=== PATIENT | male | born 1985 | race Caucasian/White ===

== ENCOUNTER 2018-07-18 18:04 | Emergency (ER) | payer BC, SELFPAY ==
--- NOTE | 2018-07-18 18:12 | DI.RAD.S_ITS ---
PROCEDURE: XR FOREARM RT 2V INDICATIONS: Foreign swelling and pain. TECHNIQUE: 2 views of the forearm were acquired. COMPARISON: None. FINDINGS: Bones: No fractures or dislocations. No bony erosions or periosteal reaction. No suspicious bony lesions. Soft tissues: There is soft tissue swelling within the mid forearm. No soft tissue calcifications. IMPRESSION: 1. No fractures or bony erosions. 2. No suspicious soft tissue calcifications. Dictated by: Jordy Carmen M.D. on 07/18/2018 at 18:57 Approved by: Jordy Carmen M.D. on 07/18/2018 at 18:58
[2018-07-18 18:13] VITALS: BP 143/93; PULSE 87; RESP 16; TEMP 37; O2SAT 98; BMI 27.1
--- NOTE | 2018-07-18 18:14 | ED.UPPEXIN ---
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 He developed left forearm pain yesterday while work. He now has difficulty with key account representative and movement in hand wrist. The pain is in his left distal forearm, radial side. He has no numbness or weaknesses hand. He has no pain in the wrist itself. He can recall no injury. He is right-hand dominant. Related Data Allergies Allergy/AdvReac Type Severity Reaction Status Date / Time No Known Drug Allergies Allergy Verified 07/18/18 18:13 Review of Systems Review of Systems ROS Unobtainable: All systems reviewed & are unremarkable except as noted in HPI and below Constitutional Reports weakness Musculoskeletal Reports as per HPI, Denies deformity, Reports muscle weakness, Denies stiffness and Denies tingling Integumentary/Breasts Denies pruritus, Denies erythema, Denies rash and Denies wounds Neurologic Reports as per HPI, Denies tingling and Reports weakness [facility] Medical History No active medical problems (Acute) Surgical History No pertinent past surgical history (Acute) Social History (Updated 07/18/18 @ 18:26 by Kumar Churchill MD) Smoking Status: Never smoker Exam Initial Vital Signs Initial Vital Signs: Vital Signs Temperature 98.6 F 07/18/18 18:13 Pulse Rate 87 07/18/18 18:13 Respiratory Rate 16 07/18/18 18:13 Blood Pressure 143/93 H 07/18/18 18:13 Pulse Oximetry 98 07/18/18 18:13 Const General: cooperative and well developed Nutritional Appearance: well nourished Orientation: alert, awake and oriented x3 Skin General: no rashes or lesions noted Neuro General: alert, oriented x3 and no focal motor deficits Extrem Other: Muscle tenderness palpable in the left dorsal, radial wrist. Pain increased with key account representative, or wrist motion. No palpable tenderness within the wrist joint itself. Normal flexion extension of all fingers on the left hand. The radial pulse is intact. Left hand is neurovascularly intact. Procedures Orthopedic Splinting/Casting Injury #1: Side: left Upper Extremity Injury Location: wrist Upper Extremity Immobilizer: wrist splint Post splinting neuro exam: intact Post splinting vascular exam: intact Placed by: Nursing Course Orders Ordered: ED Orders 07/18/18 18:12 XR forearm LT 2V Stat Vital Signs - 8 hr 07/18/18 18:13 Temperature 98.6 F Pulse Rate 87 Respiratory Rate 16 Blood Pressure 143/93 H Pulse Oximetry 98 MDM - Extremity Injury (Upper) Imaging Data Left wrist x-ray: My impression: Normal, no bony injury seen. Discharge Plan Departure Patient Disposition: Home Clinical Impression: Left wrist sprain Qualifiers: Encounter type: initial encounter Qualified Code(s): S63.502A - Unspecified sprain of left wrist, initial encounter Discharge Date/Time: 07/18/18 18:59 Interventions: ED Discharge Assessment Last Done: 07/18/18 18:59 Instructions: DI for Wrist Sprain Activity Restrictions/Additional Instructions: Use the brace when you are physically active, such as work. The brace can come off when at rest. Use Tylenol or Advil as necessary for pain. If you have not improved within 1 month follow-up with her doctor. Return here as needed. Referrals: Nadir Mohamud MD [Primary Care Provider] -
--- NOTE | 2018-07-18 18:17 | ED_ITS ---
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 He developed left forearm pain yesterday while work. 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 The pain is in his left distal forearm, radial side. He has no numbness or weaknesses hand. He has no pain in the wrist itself. He can recall no injury. He is right-hand dominant. Related Data Allergies Allergy/AdvReac Type Severity Reaction Status Date / Time No Known Drug Allergies Allergy Verified 07/18/18 18:13 Review of Systems Review of Systems ROS Unobtainable: All systems reviewed & are unremarkable except as noted in HPI and below Constitutional Reports weakness Musculoskeletal Reports as per HPI, Denies deformity, Reports muscle weakness, Denies stiffness and Denies tingling Integumentary/Breasts Denies pruritus, Denies erythema, Denies rash and Denies wounds Neurologic Reports as per HPI, Denies tingling and Reports weakness [facility] Medical History No active medical problems (Acute) Surgical History No pertinent past surgical history (Acute) Social History (Updated 07/18/18 @ 18:26 by Kumar Churchill MD) Smoking Status: Never smoker Exam Initial Vital Signs Initial Vital Signs: Vital Signs Temperature 98.6 F 07/18/18 18:13 Pulse Rate 87 07/18/18 18:13 Respiratory Rate 16 07/18/18 18:13 Blood Pressure 143/93 H 07/18/18 18:13 Pulse Oximetry 98 07/18/18 18:13 Const General: cooperative and well developed Nutritional Appearance: well nourished Orientation: alert, awake and oriented x3 Skin General: no rashes or lesions noted Neuro General: alert, oriented x3 and no focal motor deficits Extrem Other: Muscle tenderness palpable in the left dorsal, radial wrist. Pain increased with padded products finisher, or wrist motion. No palpable tenderness within the wrist joint itself. Normal flexion extension of all fingers on the left hand. The radial pulse is intact. Left hand is neurovascularly intact. Procedures Orthopedic Splinting/Casting Injury #1: Side: left Upper Extremity Injury Location: wrist Upper Extremity Immobilizer: wrist splint Post splinting neuro exam: intact Post splinting vascular exam: intact Placed by: Nursing Course Orders Ordered: ED Orders 07/18/18 18:12 XR forearm LT 2V Stat Vital Signs - 8 hr 07/18/18 18:13 Temperature 98.6 F Pulse Rate 87 Respiratory Rate 16 Blood Pressure 143/93 H Pulse Oximetry 98 MDM - Extremity Injury (Upper) Imaging Data Left wrist x-ray: My impression: Normal, no bony injury seen. Discharge Plan Departure Patient Disposition: Home Clinical Impression: Left wrist sprain Qualifiers: Encounter type: initial encounter Qualified Code(s): S63.502A - Unspecified sprain of left wrist, initial encounter Discharge Date/Time: 07/18/18 18:59 Interventions: ED Discharge Assessment Last Done: 07/18/18 18:59 Instructions: DI for Wrist Sprain Activity Restrictions/Additional Instructions: Use the brace when you are physically active, such as work. The brace can come off when at rest. Use Tylenol or Advil as necessary for pain. If you have not improved within 1 month follow-up with her doctor. Return here as needed. Referrals: Nadir Mohamud MD [Primary Care Provider] -
== END 2018-07-18 18:59 | disposition home or self-care (01) ==
PROVIDERS: Emergency Provider Emergency Medicine; Family Provider Family Medicine; PCP Family Medicine
DX: S63.502A Unspecified sprain of left wrist, initial encounter (principal); Y99.0 Civilian activity done for income or pay
CPT/HCPCS: 73090; 99282; 99283

== ENCOUNTER → 2019-07-23 14:58 | Outpatient (CLI) | payer BC, SELFPAY ==
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
== END ==
PROVIDERS: Family Provider Family Medicine; PCP Family Medicine; Referring Provider Nurse Practitioner Family; Visit Provider Nurse Practitioner Family
DX: M89.8X1 Other specified disorders of bone, shoulder (principal); S49.91XA Unspecified injury of right shoulder and upper arm, initial encounter; V86.96XA Unspecified occupant of dirt bike or motor/cross bike injured in nontraffic accident, initial encounter
CPT/HCPCS: 73000

== ENCOUNTER → 2019-10-31 13:14 | Outpatient (CLI) | payer BC, SELFPAY ==
[2019-11-01 03:15] LABS: Hepatitis B Surf AB Quant 12.8 mIU/mL (Immunity>9.9)
[2019-11-01 05:49] LABS: Hepatitis A Antibody IgM Negative (Negative)
[2019-11-01 16:13] LABS: HIV 1 & 2 Ab/Ag 4th Gen Combo NEGATIVE (NEGATIVE); Hep C Virus Ab w/Reflex Quant NEGATIVE s/c (NEGATIVE)
[2019-11-25 14:36] LABS: Hepatitis B Core IgM NEGATIVE
== END ==
PROVIDERS: Family Provider Family Medicine; PCP Family Medicine; Referring Provider Family Medicine; Visit Provider Family Medicine
DX: Z20.9 Contact with and (suspected) exposure to unspecified communicable disease (principal)
CPT/HCPCS: 36415; 86705; 86706; 86709; 86803; 87389

== ENCOUNTER → 2021-02-15 09:42 | Outpatient (CLI) | payer BC, SELFPAY ==
[2021-02-15 10:20] LABS: COVID19 -Nasal RAPID Negative (Negative)
== END ==
PROVIDERS: Visit Provider Nurse Practitioner Family
DX: Z20.822 Contact with and (suspected) exposure to COVID-19 (principal)
CPT/HCPCS: 87635